=== PATIENT | male | born 1970 | race Caucasian/White ===

== ENCOUNTER 2017-09-09 02:56 | Emergency (ER) | payer SELFPAY ==
[~2017-09-09] VITALS: Ht 180.3 cm; Wt 81.6 kg
[2017-09-09] MEDS ORDERED: OLAN2.5T3 PO (03:15)
--- NOTE | 2017-09-09 03:23 | NUR ---
DR. RICKY BOYER MD AT BEDSIDE FOR MSE.
--- NOTE | 2017-09-09 03:39 | NUR ---
Patient discharged to home in stable conditon. Written and verbal after care instructions given. Patient verbalizes understanding of instructions.
[2017-09-09 03:40] VITALS: BP 141/82
== END 2017-09-09 03:40 | disposition home or self-care (01) ==
LOC: ER 03:01
DX: H10.9 Unspecified conjunctivitis (principal); Z88.8 Allergy status to other drugs, medicaments and biological substances; Z59.0 Homelessness; Z79.899 Other long term (current) drug therapy
CPT/HCPCS: A4663

== ENCOUNTER 2017-11-16 01:05 | Emergency (ER) | payer OTHER ==
[~2017-11-16] VITALS: Ht 180.3 cm; Wt 79.4 kg
[~2017-11-16 01:05] MED LIST: OLAN2.5T3 PO
--- NOTE | 2017-11-16 01:23 | NUR ---
Dr. Chen at bedside for MSE.
[2017-11-16] MEDS ORDERED: HYDROCODONE/APAP 5-325MG TABLET ONE (01:27)
--- NOTE | 2017-11-16 01:29 | NUR ---
Xray at bedside.
[2017-11-16] MEDS ORDERED: HYDROCODONE/APAP 5-325MG TABLET PO ONE (01:30)
--- NOTE | 2017-11-16 01:56 | NUR ---
Patient discharged to home in stable conditon. Written and verbal after care instructions given. Patient verbalizes understanding of instructions. Patient ambulated out of ER with steady gait, no acute signs of distress, VSS, all belongings taken.
[2017-11-16 01:57] VITALS: BP 149/98
== END 2017-11-16 01:58 | disposition home or self-care (01) ==
LOC: ER 01:07
DX: S63.501A Unspecified sprain of right wrist, initial encounter (principal); S20.219A Contusion of unspecified front wall of thorax, initial encounter; S50.02XA Contusion of left elbow, initial encounter; Z71.6 Tobacco abuse counseling; F17.200 Nicotine dependence, unspecified, uncomplicated; Z88.8 Allergy status to other drugs, medicaments and biological substances; Z59.0 Homelessness; V23.4XXA Motorcycle driver injured in collision with car, pick-up truck or van in traffic accident, initial encounter; Y93.89 Activity, other specified; Y92.89 Other specified places as the place of occurrence of the external cause; Y99.8 Other external cause status
CPT/HCPCS: 29125; 71045; 73080; 73110; 99284; 99406; A4663

== ENCOUNTER 2017-12-23 22:34 | Emergency (ER) | payer OTHER ==
[~2017-12-23] VITALS: Ht 177.8 cm; Wt 83.9 kg
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
[2017-12-23] MEDS ORDERED: IBUPROFEN 400 MG TABLET PO ONE (23:00)
--- NOTE | 2017-12-23 23:07 | NUR ---
Xray at bedside
[2017-12-23] MEDS ORDERED: IBUPROFEN 400 MG TABLET ONE (23:18)
--- NOTE | 2017-12-23 23:21 | NUR ---
Patient discharged to home in stable conditon. Written and verbal after care instructions given. Patient verbalizes understanding of instructions. All belongings taken together.
[2017-12-23 23:27] VITALS: BP 141/85
== END 2017-12-23 23:31 | disposition home or self-care (01) ==
LOC: ER 22:35
DX: S20.212A Contusion of left front wall of thorax, initial encounter (principal); F17.200 Nicotine dependence, unspecified, uncomplicated; Z88.8 Allergy status to other drugs, medicaments and biological substances; Z59.0 Homelessness; W01.198A Fall on same level from slipping, tripping and stumbling with subsequent striking against other object, initial encounter; Y93.89 Activity, other specified; Y92.89 Other specified places as the place of occurrence of the external cause; Y99.8 Other external cause status
CPT/HCPCS: 71045; A4663

== ENCOUNTER 2018-06-09 04:56 | Emergency (ER) | payer OTHER ==
[~2018-06-09] VITALS: Ht 172.7 cm; Wt 81.6 kg
--- NOTE | 2018-06-09 05:15 | NUR ---
Dr. Maciel at bedside for MSE.
--- NOTE | 2018-06-09 05:29 | NUR ---
Patient given written and verbal discharge instructions. Patient verbalizes understanding of instructions. Patient is ambulatory with steady gait. Refuses offer of detention placement. Patient given list of available shelters in surrounding area. Pt ambulated out of ER with steady gait, no acute signs of distress, VSS, all belongings taken.
== END 2018-06-09 05:34 | disposition home or self-care (01) ==
LOC: ER 04:57
DX: L73.9 Follicular disorder, unspecified (principal); B35.3 Tinea pedis; F17.200 Nicotine dependence, unspecified, uncomplicated; Z88.8 Allergy status to other drugs, medicaments and biological substances; Z59.0 Homelessness; Z79.899 Other long term (current) drug therapy
CPT/HCPCS: A4663

== ENCOUNTER 2021-08-10 06:40 | Emergency (ER) | payer OTHER ==
[~2021-08-10] VITALS: Ht 180.3 cm; Wt 73.9 kg
--- NOTE | 2021-08-10 07:21 | NUR ---
PT IS IN ROOM #2B. DR OLIVA EVALUATED THE PT.
[2021-08-10] MEDS ORDERED: TDAP DIPH,PERTUSS,TET VAC/PF 0.5 ML DISP.SYRIN IM ONE ×2 (07:28→07:30)
[2021-08-10] MEDS ORDERED: CLOT12CR TP (07:35)
--- NOTE | 2021-08-10 07:38 | NUR ---
Hospital snacks provided to patient. Patient given written and verbal discharge instructions. Patient verbalized understanding and compliance of instructions. Patient is ambulatory with steady gait. Patient refused offer of residential placement. Patient was given list of available shelters in surrounding area.
== END 2021-08-10 07:39 | disposition home or self-care (01) ==
LOC: ER 06:40
DX: S61.233A Puncture wound without foreign body of left middle finger without damage to nail, initial encounter (principal); W26.8XXA Contact with other sharp object(s), not elsewhere classified, initial encounter; Y92.89 Other specified places as the place of occurrence of the external cause; B35.6 Tinea cruris; F31.9 Bipolar disorder, unspecified; F20.9 Schizophrenia, unspecified; Z88.8 Allergy status to other drugs, medicaments and biological substances
CPT/HCPCS: 73140; 90715; A4663